=== PATIENT | female | born 1975 | race Caucasian/White ===

== ENCOUNTER → 2025-01-13 | Outpatient (CLI) | payer BC, SELFPAY ==
[2025-01-13 15:05] LABS: Follicle Stimulating Hormone 46.9 mIU/mL
[2025-01-15 21:07] LABS: Anti-Mullerian Hormone,Serum < 0.015 ng/mL (.)
[2025-01-19 13:08] LABS: HPV APTIMA, High Risk Negative (Negative)
== END | disposition home or self-care (01) ==
PROVIDERS: PCP Family Medicine; Referring Provider Nurse Practitioner Family; Visit Provider Nurse Practitioner Family
DX: Z12.4 Encounter for screening for malignant neoplasm of cervix (principal); R53.83 Other fatigue
CPT/HCPCS: 36415; 82670; 83001; 83516; 87624; 88175; G0145

== ENCOUNTER → 2025-02-02 | Outpatient (CLI) | payer BC, SELFPAY ==
--- NOTE | 2025-02-02 16:56 | BI_ITS ---
EXAM: SCRN MAMM (CAD)W/CHAZ BILAT DATE: 02/02/2025 CLINICAL HISTORY: F, Age 49 y/o , SCREENING No family history. TECHNIQUE: Procedure Code: [id number] Modality: MG Procedure: SCRN MAMM (CAD)W/CHAZ BILAT COMPARISON: No prior study available for comparison. FINDINGS: TISSUE DENSITY: There are scattered areas of fibroglandular density. Bilateral Breast Mammographic Findings: No significant masses, calcifications or other abnormalities are identified. Small benign-appearing bilateral axillary lymph nodes. No suspicious masses, areas of developing architectural distortion, or suspicious calcifications. BI/SCRN MAMM (CAD)W/CHAZ BILAT IMPRESSION: Unremarkable bilateral screening mammogram. OVERALL FINAL ASSESSMENT BI-RADS 2: BENIGN RECOMMENDATION: Routine annual follow-up in 1 Year A letter with findings and recommendations will be mailed to the patient. Reading Location: [place] [id number]
--- OUTSIDE RECORDS SUMMARY | 2025-02-03 07:34 | XMS RPT_ITS | CCD ---
Author Organization [facility] Care Team Providers Care Color Grinder Name Role Phone MADHU VALLES Primary Care Unavailable SINAN DOMINGO Attending UnavailMADHU York Primary Care Unavailable Dr. Madhu Valles MD Primary Care Provider Dr. Madhu Valles MD Referring Provider Marjorie ADVANCED DEVELOPER-CJolynn Attending Provider Marjorie ADVANCED DEVELOPER-CJolynn Referring Provider Jolynn Amador Attending Unavailable Madhu Valles Primary Care Unavailable Madhu Valles Referring Unavailable Jolynn Amador Attending Unavailable Jolynn Amador Referring Unavailable Madhu Valles Primary Care Unavailable Jolynn Amador Referring Unavailable Madhu Valles Primary Care Unavailable Jolynn Amador Attending Unavailable Allergies Allergy Classification Reported Allergen(s) Allergy Type Date of Onset Reaction(s) Facility (1 source) Seasonal allergy; Translations: [SEASONAL ALLERGIES] Propensity to adverse reactions (disorder) 1 [facility] Other [facility] (3 sources) Adhesive Tape; Translations: [adhesive tape] Allergy to substance 5 [facility] Medications Current Medications Medication Drug Class(es) Dates Sig (Normalized) Sig (Original) cetirizine hydrochloride 10 mg oral capsule (2 sources) Histamine-1 Receptor Antagonist Start: 03-28-2021 take 1 capsule by mouth once daily as needed Cetirizine (Zyrtec) 10 mg capsule Active 10 mg PO DAILY as needed March 28, 2021 1:00am cholecalciferol 0.05 mg oral capsule (2 sources) Vitamin D Start: 12-22-2024 take 1 capsule by mouth once daily Cholecalciferol (Vitamin D3) 50 mcg (2,000 unit) capsule Active 50 ug PO daily December 22, 2024 12:00am levothyroxine sodium 0.075 mg oral capsule (4 sources) l-Thyroxine Start: 12-22-2024 take 1 capsule by mouth once daily Levothyroxine 75 mcg capsule Active 75 ug PO daily December 22, 2024 12:00am Start: 03-28-2021 End: 12-22-2024 Levothyroxine 50 mcg tablet Discontinued NMA PO March 28, 2021 1:00am December 22, 2024 9:46am Completed/Discontinued Medications Medication Drug Class(es) Dates Sig (Normalized) Sig (Original) ergocalciferol 1.25 mg oral capsule (2 sources) Provitamin D2 Compound Start: 03-28-2021 End: 12-22-2024 Ergocalciferol (Vitamin D2) 1,250 mcg (50,000 unit) capsule Discontinued NMA PO March 28, 2021 1:00am December 22, 2024 9:45am Problems Active Problems Problem Classification Problem Date Documented Da te Episodic/Chronic Malaise and fatigue (1 source) Other fatigue; Translations: [Other fatigue] Onset: 01-13-2025 Episodic Menopausal disorders (5 sources) Menopausal syndrome; Translations: [Menopausal and female climacteric states] Onset: 01-13-2025 01-13-2025 Chronic Other bone disease and musculoskeletal deformities (4 sources) Segmental and somatic dysfunction; Translations: [Segmental and somatic dysfunction of lumbar region] 03-28-2021 Episodic Other lower respiratory disease (1 source) Shortness of breath; Translations: [SOB (shortness of breath)] Onset: 06-12-2023 Episodic Other nervous system disorders (1 source) Paresthesia of skin; Translations: [Paresthesias] Onset: 06-12-2023 Episodic Other screening for suspected conditions (not mental disorders or infectious disease) (3 sources) Encounter for screening mammogram for malignant neoplasm of breast; Translations: [Encounter for screening for malignant neoplasm of cervix] Onset: 01-13-2025 Episodic Spondylosis; intervertebral disc disorders; other back problems (6 sources) Lumbar radiculopathy; Translations: [Radiculopathy, lumbar region] 03-28-2021 Episodic Thyroid disorders (2 sources) Hypothyroidism; Translations: [Hypothyroidism, unspecified] 03-28-2021 Chronic Past or Other Problems Problem Classification Problem Date Documented Da te Episodic/Chronic Mycoses (1 source) Tinea unguium; Translations: [Dermatophytosis of nail] Onset: 12-17-2022 Episodic Results Test Name Value Interpretation Reference Range Facility PAP IG HPV APTIMA 16/18,45on 01-19-2025 ADEQ Comment Normal . [facility] Comment on above: Order Comment: Speci men Comment: [id number] Specimen Comment: No. of containers..01 ThinPrep Vial Result Comment: Sati sfactory for evaluation. Endocervical and/or squamous metaplastic cells (endocervical component) are present. Performed By: #### L 7400.0280 #### [facility] [address] [place], [place], [id number] COMM . Normal . [facility] Comment on above: Order Comment: Speci men Comment: [id number] Specimen Comment: No. of containers..01 ThinPrep Vial Performed By: #### L 7400.0280 #### [facility] [address] [place], [place], [id number] COMMENT TNP Normal . [facility] Comment on above: Order Comment: Speci men Comment: [id number] Specimen Comment: No. of containers..01 ThinPrep Vial Result Comment: The Thin Prep(R) Vp Packaging was unable to read this specimen. Therefore a manual review was performed. Performed By: #### L 7400.0280 #### [facility] [address] [place], [address] DIAG Comment Normal . [facility] Comment on above: Order Comment: Speci men Comment: [id number] Specimen Comment: No. of containers..01 ThinPrep Vial Result Comment: NEGA TIVE FOR INTRAEPITHELIAL LESION OR MALIGNANCY. Performed By: #### L 7400.0280 #### [facility] [address] [place], [place], [id number] HPV APTIMA, HR Negative Normal Negative [facility] Comment on above: Order Comment: Speci men Comment: [id number] Specimen Comment: No. of containers..01 ThinPrep Vial Result Comment: This nucleic acid amplification test detects fourteen high- risk HPV types (16,18,31,33,35,39,45,51,52,56,58,59,66,68) without differentiation. Performed By: #### L 7400.0280 #### [facility] [address] [place], [address] HPV Eliane Rfx Comment Normal . [facility] Comment on above: Order Comment: Speci men Comment: [id number] Specimen Comment: No. of containers..01 ThinPrep Vial Result Comment: Crit diego not met, HPV Genotype not performed. Performed at: - [address] [id number] Foreign Law Consultant: Jane Mitchell MD, Phone: [phone] Performed at: =G - [facility] [address] [id number] Foreign Law Consultant: Jane Mitchell MD, Phone: [phone] Performed By: #### L 7400.0280 #### [facility] [address] [place], [address] PAPSMR Comment Normal . [facility] Comment on above: Order Comment: Speci men Comment: [id number] Specimen Comment: No. of containers..01 ThinPrep Vial Result Comment: The Pap smear is a screening test designed to aid in the detection of premalignant and malignant conditions of the uterine cervix. It is not a diagnostic procedure and should not be used as the sole means of detecting cervical cancer. Both false-positive and false-negative reports do occur. Performed By: #### L 7400.0280 #### [facility] [address] [place], [address] PERFORM Comment Normal . [facility] Comment on above: Order Comment: Speci men Comment: [id number] Specimen Comment: No. of containers..01 ThinPrep Vial Result Comment: Allison Van, Cabin Equipment Supervisor (ASCP) Performed By: #### L 7400.0280 #### [facility] [address] [place], [place], [address] Antimullerian Hormone, Serum on 01-15-2025 AMH, SERUM < 0.015 Normal . [facility] Comment on above: Result Comment: For assays employing antibodies, the possibility exists for interference by heterophile antibodies in the samples.1 1.Homero Grider Interferences in Immunoassays - still a threat. Clin. Chem. 2000; 46: 2743-1310. This test was developed and its performance characteristics determined by [facility]. It has not been cleared or approved by the Food and Drug Administration. Reference Range: Females 47 - 54y: <= 0.82 Median <0.03 AMH concentrations of >= 1.06 ng/mL is correlated with a better response to ovarian stimulation, produced more retrievable oocytes and higher odds of live according to Martitaer et al. Fertility and Sterility. 2010: 94:2461-8071. The current AMH test method correlates with the study method with a slope of 0.94. Females at risk of ovarian hyperstimulation syndrome or polycystic ovarian syndrome (PCOS) may exhibit elevated serum AMH concentrations. AMH levels from PCOS patients may be 2 to 5 fold higher than age-appropriate reference interval values. Granulosa cell tumors of the ovary may secrete AMH along with other tumor markers. Elevated AMH is not specific for malignancy, and the assay should not be used exclusively to diagnose or exclude an AMH-secreting ovarian tumor. Performed at: [facility] [address] [place] [id number] Foreign Law Consultant: Randall Alexander MD, Phone: [phone] Performed By: #### L 9569.2990, L3199.9331, M643.0340 #### [facility] [address] [place], [place], [id number] Cervical or vaginal specimen microscopic examination by liquid based cytology (reportOrdered By: Jolynn Amador on 01-13-2025 Cytology report Cyto stain.thin prep Doc (Cvx/Vag) Comment . [facility] Comment on above: Criteria not met, HP V Genotype not performed.Performed at: - [facility] [id number] [place], [place] [id number] Director: Jane Mitchell MD, Phone: [phone] at: =G - [facility] [id number] [place], [place] [id number] Director: Jane Mitchell MD, Phone: [phone] Cervical or vagninal specime n microscopic examination by cytology stain (reported asOrdered By: Jolynn Amador on 01-13-2025 Cytology report Cyto stain Doc (Cvx/Vag) Comment . [facility] Comment on above: The Pap smear is a s creening test designed to aid in thedetection of premalignant and malignant conditions of theuterine cervix. It is not a diagnostic procedure andshould not be used as the sole means of detecting cervicalcancer. Both false-positive and false-negative reports dooccur. Detection in cervical specim en of any of human papilloma virus (HPV) 16, 18, 31, 33,Ordered By: Jolynn Amador on 01-13-2025 HPV 16+18+31+33+35+39+45 +51+52+56+58+59+66+6 8 DNA Probe+sig amp Ql (Cvx) Negative Negative [facility] Comment on above: This nucleic acid am plification test detects fourteen high- risk HPV types (16,18,31,33,35,39,45,51,52,56,58,59,66,68)without differentiation. Estradiolon 01-13-2025 ESTRADIOL 17.8 pg/mL Normal [facility] Comment on above: Result Comment: FEMA LES ADULT FEMALE: Premenopausal: 15-350 pg/mL(E2 levels vary widely through the menstrual cycle) Postmenopausal: <10 pg/mL BENOIT STAGES MEAN AGE REFERENCE RANGES Stage I(>14 days and prepubertal) 7.1 years Undetectable-20 pg/mLL Stage II 10.5 years Undetectable-24 pg/mL Stage III 11.6 years Undetectable-60 pg/mL Stage IV 12.3 years 15-85 pg/mL Stage V 14.5 years 15-350 pg/mL Puberty onset (transition from Benoit stage I to Benoit stage II) occurs for girls at a median age of 10.5 (/- 2) years. There is evidence that it may occur up to 1 year earlier in obese girls and in girls. Progression through Benoit stages is variable. Benoit stage V (adult) should be reached by age 18. Performed By: #### L 3300.1750, L3100.5125, L803.3000 #### [facility] [address] [place], [place], [address] Follicle Stimulating Hormone on 01-13-2025 FSH 46.9 mIU/mL Normal [facility] Comment on above: Result Comment: FEMA LE: Follicular: 1.4 - 18.1 mIU/mL Midcycle: 3.4 - 33.4 mIU/mL Luteal: 1.5 - 9.1 mIU/mL Post Menopause: 23.0 - 116.3 mIU/mL MALE: 1.4 - 18.1 mIU/mL Performed By: #### L 3300.1750, L3100.5125, L803.3000 #### [facility] [address] [place], [place], [address] Laboratory - CytologyOrdered By: Jolynn Amador on 01-13-2025 Cabin Equipment Supervisor Cyto stain Nom (Cvx/Vag) [ID] Comment . [facility] Comment on above: Allison Van, Cytolo gist (ASCP) Laboratory - Miscellaneous t estsOrdered By: Jolynn Amador on 01-13-2025 Service comment (Unsp spec) [Interp] . . [facility] No Panel InformationOrdered By: Jolynn Amador on 01-13-2025 Pap Smear Specimen Adequacy Comment . [facility] Comment on above: Satisfactory for rolando luation. Endocervical and/or squamous metaplasticcells (endocervical component) are present. 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 Is patient in pain?: No Allergies adhesive tape Allergy (Mild, Verified 01/13/25 09:29) Hives Medications ???Medication ???Instructions ???Recorded ???Confirmed ???Type cetirizine 10 mg capsule (Zyrtec) 10 mg PO DAILY PRN 03/28/2101/13 History cholecalciferol (vitamin D3) 50 50 mcg PO QDAY 12/22/24 01/13/25 H istory mcg (2,000 unit) capsule levothyroxine 75 mcg capsule 75 mcg PO QDAY 12/22/24 01/13/25 H istory Is last menstrual period known: Yes Last Menstrual Period: 12/18/20 Post menopausal: Yes Patient : No : No Control Method: menopause PFSH Medical History History of UTI History of gout Hypothyroidism History of gastroesophageal reflux (GERD) History of irritable bowel syndrome History of frequent headaches Surgical History History of cholecystectomy Family History Father Colon cancer, Onset Age: 51 Grandfather Cancer Bladder Myocardial infarction, Onset Age: 60 Mother Kidney disease Thyroid disorder Brother Thyroid disorder Grandmother Arthritis Thyroid disorder Social History adopted: No household members: spouse and children number of children: 3 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 Date Name GA/Weeks Outcome Route Bth Weight Infant Gen Labor Lgth Anesthesia Del Locatn Provider FOB 03/08/98 Champ live - full term 7lbs 12oz Male epidural [facility] 11/13/00 Olivier live - full term 8lbs 9oz Male epidural [facility] 07/27/03 Radha live - full term 8lbs 6oz Female epidural [facility] Delivery Date: 07/27/03 Last Updated by: Siomara Davis UTI turned into blood infection HPI Encounter for routine gynecological examination Details: MILAGRO BOLAÑOS is a 49 year old who presents for annual exam. She is here to establish care; she reports no issues or concerns today. Her last menses was December of 2020; no reports of vaginal bleeding. Has had weight change, hotflashes, mood changes, dry skin since what sounds like going through menopause She is sexually active- using condoms. Last PAP: unsure; over 6 years. History of abnormal PAP: none Last mammogram: once prior; normal per patient; greater than 6 yrs. History of abnormal mammogram: none Colon cancer screening: Dr. Posey; [place]--will schedule through; does not need referral. Other preventative health care screenings: Ralph Valles. Female Reproductive History Last Menstrual Period: 12/18/20 Questions: metrorrhagia: No, sexually active: Yes (condoms), dyspareunia: No and PCB: No Menopausal Symptoms: Yes hot flashes, Yes night sweats, Yes weight change, Yes mood changes, Yes difficulty concentrating, Yes sleep problems and Yes change in libido Menopausal Treatment: No HRT, No Vaginal Estrogen, No Osphena, No OTC treatments and No prescription non-hormonal treatment ROS Const Constitutional: Reports night sweats; Denies chills, fatigue, fever(s), headache(s) or weight loss Eyes Eyes: Denies change in vision ENT ENT: Denies dizziness Cardio Card: Denies chest pain at rest or palpitations Resp Resp: Denies cough or dyspnea GI GI: Denies abdominal pain, constipation or nausea : Reports hot flashes; Denies difficulty voiding, dysuria, hematuria, nipple discharge, pelvic pain, prolapse symptoms, urinary incontinence, vaginal discharge, vaginal dryness, vaginal odor or vaginal pruritus Skin Skin (more content not included)... Normal [facility] Serum or plasma estradiol me asurement after follitropin dose (mass/volume)Ordered By: Jolynn Amador on 01-13-2025 E2 post dose follitropin [Mass/Vol] 17.8 pg/mL [facility] Comment on above: FEMALES ADULT FEMALE : Premenopausal: 15-350 pg/mL(E2 levels vary widely through the menstrual cycle) Postmenopausal: <10 pg/mL BENOIT STAGES MEAN AGE REFERENCE RANGES Stage I(>14 days and prepubertal) 7.1 years Undetectable-20 pg/mLL Stage II 10.5 years Undetectable-24 pg/mL Stage III 11.6 years Undetectable-60 pg/mL Stage IV 12.3 years 15-85 pg/mL Stage V 14.5 years 15-350 pg/mL Puberty onset (transition from Benoit stage I to Benoit stage II) occurs for girls at a median age of 10.5 (/- 2) years. There is evidence that it may occur up to 1 year earlier in obese girls and in girls.Progression through Benoit stages is variable. Benoit stage V (adult) should be reached by age 18. Serum or plasma flecainide m easurement (mass/volume)Ordered By: Jolynn Amador on 01-13-2025 Flecainide [Mass/Vol] < 0.015 ng/mL . [facility] Comment on above: For assays employing antibodies, the possibility exists forinterference by heterophile antibodies in the samples.11.Homero Grider Interferences in Immunoassays - still a threat. Clin. Chem. 2000; 46: 6337-5510.This test was developed and its performance characteristicsdetermined by [facility]. It has not been cleared or approvedby the Food and Drug Administration.Reference Range:Females 47 - 54y: <= 0.82Median <0.03AMH concentrations of >= 1.06 ng/mL is correlated with abetter response to ovarian stimulation, produced moreretrievable oocytes and higher odds of live accordingto Gleicher et al. Fertility and Sterility. 2010:94:4254-2014. The current AMH test method correlates withthe study method with a slope of 0.94.Females at risk of ovarian hyperstimulation syndrome orpolycystic ovarian syndrome (PCOS) may exhibit elevatedserum AMH concentrations. AMH levels from PCOS patientsmay be 2 to 5 fold higher than age-appropriate referenceinterval values.Granulosa cell tumors of the ovary may secrete AMH alongwith other tumor markers. Elevated AMH is not specific formalignancy, and the assay should not be used exclusively todiagnose or exclude an AMH-secreting ovarian tumor.Performed at: [facility] [address] [place] [id number] Director: Randall Alexander MD, Phone: [phone] CBC (INCLUDES DIFF/PLT)on Basophils (Bld) [#/Vol] 0.04 10*3/uL Normal 0-200 [facility] Comment on above: Performed By: #### 1 7306, 6399, 7600, 905, 44628 #### [facility] [address], [address] [place] [address] Chiller Operator: Babar Gomez MD Basophils/100 WBC (Bld) 0.8 % Normal [facility] Comment on above: Performed By: #### 1 7306, 6399, 7600, 905, 78707 #### [facility] [place] [address] Chiller Operator: Babar Gomez MD Eosinophils (Bld) [#/Vol] 0.09 10*3/uL Normal 15-500 [facility] Comment on above: Performed By: #### 1 7306, 6399, 7600, 905, 14192 #### [facility] [place] [address] Chiller Operator: Babar Gomez MD Eosinophils/100 WBC (Bld) 1.8 % Normal [facility] Comment on above: Performed By: #### 1 7306, 6399, 7600, 905, 26889 #### [facility] [address], [address] [place] [address] Chiller Operator: Babar Gomez MD Erythrocyte distribution width (RBC) [Ratio] 13.8 % Normal 11.0-15.0 [facility] Comment on above: Performed By: #### 1 7306, 6399, 7600, 905, 02798 #### [facility] of [place] [address] Chiller Operator: Babar Gomez MD Hematocrit (Bld) [Volume fraction] 44.9 % Normal 35.0-45.0 [facility] Comment on above: Performed By: #### 1 7306, 6399, 7600, 905, 16413 #### [facility] of [place] [address] Chiller Operator: Babar Gomez MD Hemoglobin (Bld) [Mass/Vol] 14.4 g/dL Normal 11.7-15.5 [facility] Comment on above: Performed By: #### 1 7306, 6399, 7600, 905, 38908 #### [facility] of [place] [address] Chiller Operator: Babar Gomez MD Lymphocytes (Bld) [#/Vol] 1.585 10*3/uL Normal 850-3900 [facility] Comment on above: Performed By: #### 1 7306, 6399, 7600, 905, 92546 #### [facility] of [place] [address] Chiller Operator: Babar Gomez MD Lymphocytes/100 WBC (Bld) 31.7 % Normal [facility] Comment on above: Performed By: #### 1 7306, 6399, 7600, 905, 71612 #### [facility] of [place] [address] Chiller Operator: Babar Gomez MD MCH (RBC) [Entitic mass] 29.8 pg Normal 27.0-33.0 [facility] Comment on above: Performed By: #### 1 7306, 6399, 7600, 905, 53794 #### [facility] [place] [address] Chiller Operator: Babar Gomez MD MCHC (RBC) [Mass/Vol] 32.1 g/dL Normal 32.0-36.0 [facility] Comment on above: Result Comment: For adults, a slight decrease in the calculated MCHC value (in the range of 30 to 32 g/dL) is most likely not clinically significant; however, it should be interpreted with caution in correlation with other red cell parameters and the patient's clinical condition. Performed By: #### 1 7306, 6399, 7600, 905, 60173 #### [facility] [place] [address] Chiller Operator: Babar Gomez MD MCV (RBC) [Entitic vol] 92.8 fL Normal 80.0-100.0 [facility] Comment on above: Performed By: #### 1 7306, 6399, 7600, 905, 85198 #### [facility] [place] [address] Chiller Operator: Babar Gomez MD Monocytes (Bld) [#/Vol] 0.44 10*3/uL Normal 200-950 [facility] Comment on above: Performed By: #### 1 7306, 6399, 7600, 905, 60066 #### [facility] [place] [address] Chiller Operator: Babar Gomez MD Monocytes/100 WBC (Bld) 8.8 % Normal [facility] Comment on above: Performed By: #### 1 7306, 6399, 7600, 905, 01149 #### [facility] [place] [address] Chiller Operator: Babar Gomez MD Neutrophils (Bld) [#/Vol] 2.845 10*3/uL Normal 8039-6496 [facility] Comment on above: Performed By: #### 1 7306, 6399, 7600, 905, 59154 #### [facility] [place] [address] Chiller Operator: Babar Gomez MD Neutrophils/100 WBC (Bld) 56.9 % Normal [facility] Comment on above: Performed By: #### 1 7306, 6399, 7600, 905, 66429 #### [facility] of [address], [address] [place] [address] Chiller Operator: Babar Gomez MD Platelet mean volume (Bld) [Entitic vol] 10.2 fL Normal 7.5-12.5 [facility] Comment on above: Performed By: #### 1 7306, 6399, 7600, 905, 68316 #### [facility] [place] [address] Chiller Operator: Babar Gomez MD Platelets (Bld) [#/Vol] 247 10*3/uL Normal 140-400 [facility] Comment on above: Performed By: #### 1 7306, 6399, 7600, 905, 31032 #### [facility] of [place] [address] Chiller Operator: Babar Gomez MD RBC (Bld) [#/Vol] 4.84 10*6/uL Normal 3.80-5.10 [facility] Comment on above: Performed By: #### 1 7306, 6399, 7600, 905, 13372 #### [facility] [place] [address] Chiller Operator: Babar Gomez MD WBC (Bld) [#/Vol] 5.0 10*3/uL Normal 3.8-10.8 [facility] Comment on above: Performed By: #### 1 7306, 6399, 7600, 905, 09406 #### [facility] [place] [address] Chiller Operator: Babar Gomez MD COMPREHENSIVE METABOLIC PANE [facility] 10-16-2024 Albumin [Mass/Vol] 4.6 g/dL Normal 3.6-5.1 [facility] Comment on above: Performed By: #### 1 7306, 6399, 7600, 905, 15207 #### [facility] [place] [address] Chiller Operator: Babar Gomez MD Albumin/Globulin [Mass ratio] 1.6 {ratio} Normal 1.0-2.5 [facility] Comment on above: Performed By: #### 1 7306, 6399, 7600, 905, 16997 #### [facility] [place] [address] Chiller Operator: Babar Gomez MD ALP [Catalytic activity/Vol] 81 U/L Normal 37-153 [facility] Comment on above: Performed By: #### 1 7306, 6399, 7600, 905, 21085 #### [facility] [place] [address] Chiller Operator: Babar Gomez MD ALT [Catalytic activity/Vol] 25 U/L Normal 6-29 [facility] Comment on above: Performed By: #### 1 7306, 6399, 7600, 905, 01666 #### [facility] [place] [address] Chiller Operator: Babar Gomez MD AST [Catalytic activity/Vol] 19 U/L Normal 10-35 [facility] Comment on above: Performed By: #### 1 7306, 6399, 7600, 905, 39023 #### [facility] [place] [address] Chiller Operator: Babar Gomez MD Bilirubin [Mass/Vol] 0.4 mg/dL Normal 0.2-1.2 [facility] Comment on above: Performed By: #### 1 7306, 6399, 7600, 905, 27443 #### [facility] [place] [address] Chiller Operator: Babar Gomez MD Calcium [Mass/Vol] 9.9 mg/dL Normal 8.6-10.4 [facility] Comment on above: Performed By: #### 1 7306, 6399, 7600, 905, 79935 #### [facility] [place] [address] Chiller Operator: Babar Gomez MD Chloride [Moles/Vol] 105 mmol/L Normal 98-110 [facility] Comment on above: Performed By: #### 1 7306, 6399, 7600, 905, 20587 #### [facility] [place] [address] Chiller Operator: Babar Gomez MD CO2 [Moles/Vol] 26 mmol/L Normal 20-32 [facility] Comment on above: Performed By: #### 1 7306, 6399, 7600, 905, 80064 #### [facility] [place] [address] Chiller Operator: Babar Gomez MD Creatinine [Mass/Vol] 1.08 mg/dL High 0.50-1.03 [facility] Comment on above: Performed By: #### 1 7306, 6399, 7600, 905, 24502 #### [facility] [place] [address] Chiller Operator: Babar Gomez MD GFR/1.73 sq M.predicted among non-blacks MDRD (S/P/Bld) [Vol rate/Area] 63 mL/min/{1.73_m2} Normal > OR = 60 [facility] Comment on above: Performed By: #### 1 7306, 6399, 7600, 905, 87082 #### [facility] [place] [address] Chiller Operator: Babar Gomez MD Globulin (S) [Mass/Vol] 2.8 g/dL Normal 1.9-3.7 [facility] Comment on above: Performed By: #### 1 7306, 6399, 7600, 905, 95086 #### [facility] of [address] [address] Chiller Operator: Babar Gomez MD Glucose [Mass/Vol] 100 mg/dL High 65-99 [facility] Comment on above: Result Comment: Fasting reference interval For someone without known diabetes, a glucose value between 100 and 125 mg/dL is consistent with prediabetes and should be confirmed with a follow-up test. Performed By: #### 1 7306, 6399, 7600, 905, 04788 #### [facility] [place] [address] Chiller Operator: Babar Gomez MD Potassium [Moles/Vol] 4.9 mmol/L Normal 3.5-5.3 [facility] Comment on above: Performed By: #### 1 7306, 6399, 7600, 905, 44197 #### [facility] [place] [address] Chiller Operator: Babar Gomez MD Protein [Mass/Vol] 7.4 g/dL Normal 6.1-8.1 [facility] Comment on above: Performed By: #### 1 7306, 6399, 7600, 905, 88981 #### [facility] [place] [address] Chiller Operator: Babar Gomez MD Sodium [Moles/Vol] 141 mmol/L Normal 135-146 [facility] Comment on above: Performed By: #### 1 7306, 6399, 7600, 905, 33532 #### [facility] [place] [address] Chiller Operator: Babar Gomez MD Urea nitrogen [Mass/Vol] 14 mg/dL Normal 7-25 [facility] Comment on above: Performed By: #### 1 7306, 6399, 7600, 905, 60191 #### [facility] [place] [address] Chiller Operator: Babar Gomez MD Urea nitrogen/Creatinine [Mass ratio] 13 mg/mg Normal 6-22 [facility] Comment on above: Performed By: #### 1 7306, 6399, 7600, 905, 54482 #### [facility] [address], [address] [place] [address] Chiller Operator: Babar Gomez MD LIPID PANEL, [place] [address] Cholesterol [Mass/Vol] 229 mg/dL High <200 [facility] Comment on above: Order Comment: FASTI NG:YES FASTING: YES Performed By: #### 1 7306, 6399, 7600, 905, 55443 #### [facility] [address], [address] [place] [address] Chiller Operator: Babar Gomez MD Cholesterol in HDL [Mass/Vol] 42 mg/dL Low > OR = 50 [facility] Comment on above: Order Comment: FASTI NG:YES FASTING: YES Performed By: #### 1 7306, 6399, 7600, 905, 46521 #### [facility] [address], [address] [place] [address] Chiller Operator: Babar oGmez MD Cholesterol in LDL [Mass/Vol] 133 mg/dL High [facility] Comment on above: Order Comment: FASTI NG:YES FASTING: YES Result Comment: Refe rence range: <100 Desirable range <100 mg/dL for primary prevention; <70 mg/dL for patients with CHD or diabetic patients with > or = 2 CHD risk factors. LDL-C is now calculated using the Joseph-Doni calculation, which is a validated novel method providing better accuracy than the Friedewald equation in the estimation of LDL-C. Joseph CROUCH et al. CRISTIN. 2013;310(19): 6355-0832 (http://education.[employer].Gummii/faq/UYK077) Performed By: #### 1 7306, 6399, 7600, 905, 55991 #### [facility] [address], [address] [place] [address] Chiller Operator: Babar Gomez MD Cholesterol.total/Ch olesterol in HDL [Mass ratio] 5.5 {ratio} High <5.0 [facility] Comment on above: Order Comment: FASTI NG:YES FASTING: YES Performed By: #### 1 7306, 6399, 7600, 905, 84603 #### [facility] [address], [address] [place] [address] Chiller Operator: Babar Gomez MD NON HDL CHOLESTEROL 187 mg/dL (calc) High <130 [facility] Comment on above: Order Comment: FASTI NG:YES FASTING: YES Result Comment: For patients with diabetes plus 1 major ASCVD risk factor, treating to a non-HDL-C goal of <100 mg/dL (LDL-C of <70 mg/dL) is considered a therapeutic option. Performed By: #### 1 7306, 6399, 7600, 905, 62039 #### [facility] [place] [address] Chiller Operator: Babar Gomez MD Triglyceride [Mass/Vol] 378 mg/dL High <150 [facility] Comment on above: Order Comment: FASTI NG:YES FASTING: YES Result Comment: If a non-fasting specimen was collected, consider repeat triglyceride testing on a fasting specimen if clinically indicated. Rogelio et al. J. of Clin. Lipidol. 2015;9:129-169. Performed By: #### 1 7306, 6399, 7600, 905, 12333 #### [facility] [place] [address] Chiller Operator: Babar Gomez MD TSHon 10-16-2024 TSH Qn 2.55 m[IU]/L Normal [facility] Comment on above: Result Comment: Refe rence Range > or = 20 Years 0.40-4.50 Ranges First trimester 0.26-2.66 Second trimester 0.55-2.73 Third trimester 0.43-2.91 Performed By: #### 1 7306, 6399, 7600, 905, 71699 #### [facility] [place] [address] Chiller Operator: Babar Gomez MD URIC ACIDon 10-16-2024 Urate [Mass/Vol] 7.0 mg/dL Normal 2.5-7.0 [facility] Comment on above: Result Comment: Ther apeutic target for gout patients: <6.0 mg/dL Performed By: #### 1 7306, 6399, 7600, 905, 04054 #### [place] [address] Chiller Operator: Babar Gomez MD VITAMIN D,25-OH,TOTAL,IAon 0 10-16-2024 VITAMIN D,25-OH,TOTAL,IA 43 ng/mL Normal 30-100 [facility] Comment on above: Result Comment: [place] min D Status 25-OH Vitamin D: Deficiency: <20 ng/mL Insufficiency: 20 - 29 ng/mL Optimal: > or = 30 ng/mL For 25-OH Vitamin D testing on patients on D2-supplementation and patients for whom quantitation of D2 and D3 fractions is required, the QuestAssureD(TM) 25-OH VIT D, (D2,D3), LC/MS/MS is recommended: order code 50920 (patients >2yrs). See Note 1 Note 1 For additional information, please refer to http://education.Outernet/faq/CLF356 (This link is being provided for informational/ educational purposes only.) Performed By: #### 1 7306, 6399, 7600, 905, 27258 #### [place] [address] Chiller Operator: Babar Gomez MD CBC W Auto Differential pane l (Bld)on 06-12-2023 Basophils (Bld) [#/Vol] 0.03 10*3/uL Normal <0.11 [facility] Comment on above: Order Comment: Speci men Type: BLOOD SPECIMEN Ordering Facility: [facility] Address: [address] [place] [address] Performed By: #### 5 7021-8 #### [facility] CLIA [id number] [address] [place] [address] [place] Basophils/100 WBC (Bld) 0.5 % Normal [facility] Comment on above: Order Comment: Speci men Type: BLOOD SPECIMEN Ordering Facility: [facility] Address: [address] [place] [address] Performed By: #### 5 7021-8 #### [facility] CLIA [id number] [address] [place] Differential cell count method Nom (Bld) Auto Normal [facility] Comment on above: Order Comment: Speci men Type: BLOOD SPECIMEN Ordering Facility: [facility] Address: [address] [place] [address] Performed By: #### 5 7021-8 #### [facility] CLIA [id number] [address] [place] [address] [place] Eosinophils (Bld) [#/Vol] 0.03 10*3/uL Normal <0.46 [facility] Comment on above: Order Comment: Speci men Type: BLOOD SPECIMEN Ordering Facility: [facility] Address: [address] [place] [address] Performed By: #### 5 7021-8 #### [facility] CLIA [id number] [address] [place] Eosinophils/100 WBC (Bld) 0.5 % Normal [facility] Comment on above: Order Comment: Speci men Type: BLOOD SPECIMEN Ordering Facility: [facility] Address: [address] [place] [address] Performed By: #### 5 7021-8 #### [facility] CLIA [id number] [address] [place] Erythrocyte distribution width (RBC) [Ratio] 12.9 % Normal 11.5-15.0 [facility] Comment on above: Order Comment: Speci men Type: BLOOD SPECIMEN Ordering Facility: [facility] Address: [address] [place] [address] Performed By: #### 5 7021-8 #### [facility] CLIA [id number] [address] [place] Hematocrit (Bld) [Volume fraction] 43.2 % Normal 36.0-46.0 [facility] Comment on above: Order Comment: Speci men Type: BLOOD SPECIMEN Ordering Facility: [facility] Address: [address] [place] [address] Performed By: #### 5 7021-8 #### [facility] CLIA [id number] [address] [place] [address] [place] Hemoglobin (Bld) [Mass/Vol] 15.1 g/dL Normal 11.5-15.5 [facility] Comment on above: Order Comment: Speci men Type: BLOOD SPECIMEN Ordering Facility: [facility] Address: [address] [place] [address] Performed By: #### 5 7021-8 #### [facility] CLIA [id number] [address] [place] [address] [place] Immature granulocytes (Bld) [#/Vol] 0.03 10*3/uL Normal <0.10 [facility] Comment on above: Order Comment: Speci men Type: BLOOD SPECIMEN Ordering Facility: [facility] Address: [address] [place] [address] Performed By: #### 5 7021-8 #### [facility] CLIA [id number] [address] Immature granulocytes/100 WBC (Bld) 0.5 % Normal [facility] Comment on above: Order Comment: Speci men Type: BLOOD SPECIMEN Ordering Facility: [facility] Address: [address] [place] [address] Performed By: #### 5 7021-8 #### [facility] CLIA [id number] [address] [place] Lymphocytes (Bld) [#/Vol] 1.26 10*3/uL Normal 1.00-4.00 [facility] Comment on above: Order Comment: Speci men Type: BLOOD SPECIMEN Ordering Facility: [facility] Address: [address] [place] [address] Performed By: #### 5 7021-8 #### [facility] CLIA [id number] [address] Lymphocytes/100 WBC (Bld) 21.2 % Normal [facility] Comment on above: Order Comment: Speci men Type: BLOOD SPECIMEN Ordering Facility: [facility] Address: [address] [place] [address] Performed By: #### 5 7021-8 #### [facility] CLIA [id number] [address] MCH (RBC) [Entitic mass] 31.1 pg Normal 26.0-34.0 [facility] Comment on above: Order Comment: Speci men Type: BLOOD SPECIMEN Ordering Facility: [facility] Address: [address] [place] [address] Performed By: #### 5 7021-8 #### [facility] CLIA [id number] [address] [place] MCHC (RBC) [Mass/Vol] 35.0 g/dL Normal 30.5-36.0 [facility] Comment on above: Order Comment: Speci men Type: BLOOD SPECIMEN Ordering Facility: [facility] Address: [address] [place] [address] Performed By: #### 5 7021-8 #### [facility] CLIA [id number] [address] MCV (RBC) [Entitic vol] 88.9 fL Normal 80.0-100.0 [facility] Comment on above: Order Comment: Speci men Type: BLOOD SPECIMEN Ordering Facility: [facility] Address: [address] [place] [address] Performed By: #### 5 7021-8 #### [facility] CLIA [id number] [address] Monocytes (Bld) [#/Vol] 0.53 10*3/uL Normal <0.87 [facility] Comment on above: Order Comment: Speci men Type: BLOOD SPECIMEN Ordering Facility: [facility] Address: [address] [place] [address] Performed By: #### 5 7021-8 #### [facility] CLIA [id number] [address] Monocytes/100 WBC (Bld) 8.9 % Normal [facility] Comment on above: Order Comment: Speci men Type: BLOOD SPECIMEN Ordering Facility: [facility] Address: [address] [place] [address] Performed By: #### 5 7021-8 #### [facility] CLIA [id number] [address] [place] Neutrophils (Bld) [#/Vol] 4.06 10*3/uL Normal 1.45-7.50 [facility] Comment on above: Order Comment: Speci men Type: BLOOD SPECIMEN Ordering Facility: [facility] Address: [address] [place] [address] Performed By: #### 5 7021-8 #### [facility] CLIA [id number] [address] [place] Neutrophils/100 WBC (Bld) 68.4 % Normal [facility] Comment on above: Order Comment: Speci men Type: BLOOD SPECIMEN Ordering Facility: [facility] Address: [address] [place] [address] Performed By: #### 5 7021-8 #### [facility] CLIA [id number] [address] [place] Nucleated RBC (Bld) [#/Vol] 10*3/uL Normal <0.01 [facility] Comment on above: Order Comment: Speci men Type: BLOOD SPECIMEN Ordering Facility: [facility] Address: [address] [place] [address] Performed By: #### 5 7021-8 #### [facility] CLIA [id number] [address] Nucleated RBC/100 WBC (Bld) [Ratio] 0.0 /100 WBC Normal [facility] Comment on above: Order Comment: Speci men Type: BLOOD SPECIMEN Ordering Facility: [facility] Address: [address] [place] [address] Performed By: #### 5 7021-8 #### [facility] CLIA [id number] [address] Platelet mean volume (Bld) [Entitic vol] 9.6 fL Normal 9.0-12.7 [facility] Comment on above: Order Comment: Speci men Type: BLOOD SPECIMEN Ordering Facility: [facility] Address: [address] [place] [address] Performed By: #### 5 7021-8 #### [facility] CLIA [id number] [address] Platelets (Bld) [#/Vol] 196 10*3/uL Normal 150-400 [facility] Comment on above: Order Comment: Speci men Type: BLOOD SPECIMEN Ordering Facility: [facility] Address: [address] [place] [address] Performed By: #### 5 7021-8 #### [facility] CLIA [id number] [address] [place] RBC (Bld) [#/Vol] 4.86 10*6/uL Normal 3.90-5.20 [facility] Comment on above: Order Comment: Speci men Type: BLOOD SPECIMEN Ordering Facility: [facility] Address: [address] [place] [address] Performed By: #### 5 7021-8 #### [facility] CLIA [id number] [address] WBC (Bld) [#/Vol] 5.94 10*3/uL Normal 3.70-11.00 [facility] Comment on above: Order Comment: Speci men Type: BLOOD SPECIMEN Ordering Facility: [facility] Address: [address] [place] [address] Performed By: #### 5 7021-8 #### [facility] CLIA [id number] [address] Comprehensive metabolic 2000 panelon 06-12-2023 Albumin [Mass/Vol] 4.3 g/dL Normal 3.9-4.9 [facility] Comment on above: Order Comment: Speci men Type: BLOOD SPECIMEN Ordering Facility: [facility] Address: [address] [place] [address] Performed By: #### L [id number], 3016-3, 12399-9 #### [facility] CLIA [id number] [address] ALP [Catalytic activity/Vol] 79 U/L Normal 34-123 [facility] Comment on above: Order Comment: Speci men Type: BLOOD SPECIMEN Ordering Facility: [facility] Address: [address] [place] [address] Performed By: #### L [id number], 6-3, 91983-9 #### [facility] CLIA [id number] [address] ALT [Catalytic activity/Vol] 15 U/L Normal 7-38 [facility] Comment on above: Order Comment: Speci men Type: BLOOD SPECIMEN Ordering Facility: [facility] Address: [address] [place] [address] Performed By: #### L [id number], 6-3, 47183-2 #### [facility] CLIA [id number] [address] Anion gap [Moles/Vol] 11 mmol/L Normal 9-18 [facility] Comment on above: Order Comment: Speci men Type: BLOOD SPECIMEN Ordering Facility: [facility] Address: [address] [place] [address] Performed By: #### L [id number], 3015-3, 59067-8 #### [facility] CLIA [id number] [address] AST [Catalytic activity/Vol] 14 U/L Normal 13-35 [facility] Comment on above: Order Comment: Speci men Type: BLOOD SPECIMEN Ordering Facility: [facility] Address: [address] [place] [address] Performed By: #### L [id number], 3015-3, 48830-6 #### [facility] CLIA [id number] [address] [place] [facility] Bilirubin [Mass/Vol] 0.5 mg/dL Normal 0.2-1.3 [facility] Comment on above: Order Comment: Speci men Type: BLOOD SPECIMEN Ordering Facility: [facility] Address: [address] [place] [address] Performed By: #### L [id number], 6-3, 63498-8 #### [facility] CLIA [id number] [address] [facility] Calcium [Mass/Vol] 9.4 mg/dL Normal 8.5-10.2 [facility] Comment on above: Order Comment: Speci men Type: BLOOD SPECIMEN Ordering Facility: [facility] Address: [address] [place] [address] Performed By: #### L [id number], 3016-3, 43220-3 #### [facility] CLIA [id number] [address] [place] [address] [place] Chloride [Moles/Vol] 103 mmol/L Normal 97-105 [facility] Comment on above: Order Comment: Speci men Type: BLOOD SPECIMEN Ordering Facility: [facility] Address: [address] [place] [address] Performed By: #### L [id number], 6-3, 24388-4 #### [facility] CLIA [id number] [address] [place] CO2 [Moles/Vol] 27 mmol/L Normal 22-30 [facility] Comment on above: Order Comment: Speci men Type: BLOOD SPECIMEN Ordering Facility: [facility] Address: [address] [place] [address] Performed By: #### L [id number], 6-3, 06876-4 #### [facility] CLIA [id number] [address] [place] Creatinine [Mass/Vol] 1.02 mg/dL High 0.58-0.96 [facility] Comment on above: Order Comment: Speci men Type: BLOOD SPECIMEN Ordering Facility: [facility] Address: [address] [place] [address] Performed By: #### L [id number], 6-3, 69369-7 #### [facility] CLIA [id number] [address] [place] Creatinine and Glomerular filtration rate.predicted panel (S/P/Bld) 68 mL/min/1.73m??? Normal >=60 [facility] Comment on above: Order Comment: Speci men Type: BLOOD SPECIMEN Ordering Facility: [facility] Address: [address] [place] [address] Result Comment: Xiomy mated Glomerular Filtration Rate (eGFR) is calculated using the 2020 CKD-EPI creatinine equation. This equation utilizes serum creatinine, sex, and age as parameters. The creatinine assay has traceable calibration to isotope dilution-mass spectrometry. Refer to KDIGO guidelines for clinical interpretation. In patients with unstable renal function, e.g. those with acute kidney injury, the eGFR may not accurately reflect actual GFR. Performed By: #### L [id number], 3016-3, 38240-0 #### [facility] CLIA [id number] [address] [place] [address] [place] Glucose [Mass/Vol] 119 mg/dL High 74-99 [facility] Comment on above: Order Comment: Hernandez smith Type: BLOOD SPECIMEN Ordering Facility: [facility] Address: [address] [place] [address] Result Comment: The [place] [employer] (ADA) provides guidance for cutoff values for fasting glucose and random glucose. The ADA defines fasting as no caloric intake for at least 8 hours. Fasting plasma glucose results between 100 to 125 mg/dL indicate increased risk for diabetes (prediabetes). Fasting plasma glucose results greater than or equal to 126 mg/dL meet the criteria for diagnosis of diabetes. In the absence of unequivocal hyperglycemia, results should be confirmed by repeat testing. In a patient with classic symptoms of hyperglycemia or hyperglycemic crisis, random plasma glucose results greater than or equal to 200 mg/dL meet the criteria for diagnosis of diabetes. Reference: Standards of Medical Care in Diabetes 2016, [place] [employer]. Diabetes Care. 2016.39(Suppl 1). Performed By: #### L [id number], 3016-3, 21194-1 #### [facility] CLIA [id number] [address] [place] [address] [place] Potassium [Moles/Vol] 4.2 mmol/L Normal 3.7-5.1 [facility] Comment on above: Order Comment: Hernandez smith Type: BLOOD SPECIMEN Ordering Facility: [facility] Address: [address] [place] [address] Performed By: #### L [id number], 3016-3, 53023-6 #### [facility] CLIA [id number] [address] [place] [address] Protein [Mass/Vol] 7.1 g/dL Normal 6.3-8.0 [facility] Comment on above: Order Comment: Mercedesi men Type: BLOOD SPECIMEN Ordering Facility: [facility] Address: [address] [place] [address] Performed By: #### L [id number], 3016-3, 82745-9 #### [facility] CLIA [id number] [address] Sodium [Moles/Vol] 141 mmol/L Normal 136-144 [facility] Comment on above: Order Comment: Mercedesi men Type: BLOOD SPECIMEN Ordering Facility: [facility] Address: [address] [place] [address] Performed By: #### L [id number], 6-3, 11471-0 #### [facility] CLIA [id number] [address] Urea nitrogen [Mass/Vol] 12 mg/dL Normal 7-21 [facility] Comment on above: Order Comment: Speci men Type: BLOOD SPECIMEN Ordering Facility: [facility] Address: [address] [place] [address] Performed By: #### L [id number], 6-3, 78636-5 #### [facility] CLIA [id number] [address] D dimer FEU PPP-mCncon 06-12 Fibrin D-dimer FEU (PPP) [Mass/Vol] 210 ng/mL FEU Normal <500 [facility] Comment on above: Order Comment: Speci men Type: BLOOD SPECIMEN Ordering Facility: [facility] Address: [address] [place] [address] Performed By: #### 4 8065-7 #### [facility] CLIA [id number] [address] ECG COMPLETEon 06-12-2023 ECG COMPLETE Ventricular Rate : 7 1 BPM Atrial Rate : 71 BPM P-R Interval : 162 ms QRS Duration : 86 ms Q-T Interval : 416 ms QTC Calculation(Bazett) : 452 ms Calculated P Coventry : 49 degrees Calculated R Coventry : 41 degrees Calculated T Coventry : 35 degrees NORMAL SINUS RHYTHM NORMAL ECG no stemi Confirmed by Long DOMINGO ERIKA ([id number]), fan mail editor LAUREN CAMPOS ([id number]) on 06/12/2023 12:24:20 PM NAME : MILAGRO BOLAÑOS PID : [id number] : 1975 Gender : Female Race : ORD : [id number] Procedure Date : Jun 12 2023 08:07:13 Edit Date : Jun 12 2023 12:24:21 Diagnosis: NORMAL SINUS RHYTHM NORMAL ECG no stemi Confirmed by Long DOMINGO ERIKA ([id number]), fan mail editor LAUREN CAMPOS ([id number]) on 06/12/2023 12:24:20 PM Test Reason : Chest Pain Location : 1 : ER 09 Overread By : Long DOMINGO ERIKA Edited By : LAUREN CAMPOS Referred By : , Acquired by : VIKRAM, [facility] ED NOTEon 06-12-2023 ED NOTE HNO ID: [id number] Author: BULL LICEA RN Service: ? Author Type: Registered Nurse Type: ED Notes Filed: 06/12/2023 10:00 Note Text: Discharged pt. with diagnosis of SOB. Discharge and follow up instructions given. Pt. verbalized understanding of discharge instructions. Pt. has no further questions and/or concerns at this time. Heplock d/c'd. Pt. ambulates with steady gait. [facility] ED PROV NOTEon 06-12-2023 ED PROV NOTE HNO ID: [id number] Author: SINAN DOMINGO MD Service: ? Author Type: Physician Type: ED Provider Notes Filed: 06/12/2023 09:42 Note Text: ED Provider Note Patient Name: Milagro Bolaños : 1975 SERVICE DATE: 06/12/23 History Patient presents with: Shortness of Breath: Episode of sob and generalized numbness that woke her from sleep this morning. Pt reports she also had near syncopal episode. Patient with h/o thyroid disorder who presents with sudden onset of feeling sob and having overall arm/body numbness. She reports developing sore throat, laryngitis, and slight cough three days ago. She has been sleeping prone since this seems to help her cough. This morning, when getting up could not breath through her nose or mouth. She began feeling panicky and felt numbness in her arms, upper legs, and torso. The sob has resolved but she has still been having intermittent numbness. She denies chest pain, abdominal pain, fever/chills, n/v/d, flank pain, or headache. PAST MEDICAL HISTORY Diagnosis Date - Hypothyroid PAST SURGICAL HISTORY Procedure Laterality Date - CHOLECYSTECTOMY HX FAMILY HISTORY Problem Relation Age of Onset - Colon Cancer Father - Diabetes Paternal Grandmother - Cancer Maternal Grandfather Bladder - Kidney Disease Mother Social History Tobacco Use - Smoking status: Never - Smokeless tobacco: Never Substance and Sexual Activity - Alcohol use: No - Drug use: No - Sexual activity: Yes ALLERGIES Allergen Reactions - Seasonal Allergies Unknown Review of Systems Constitutional: Negative for chills and fever. HENT: Positive for sore throat and voice change. Negative for congestion, rhinorrhea, sinus pressure, sinus pain and sneezing. Eyes: Negative for visual disturbance. Respiratory: Positive for cough and shortness of breath. Cardiovascular: Negative for chest pain, palpitations and leg swelling. Gastrointestinal: Negative for abdominal pain, diarrhea, nausea and vomiting. Genitourinary: Negative for difficulty urinating, dysuria, flank pain and hematuria. Musculoskeletal: Negative for back pain, myalgias and neck stiffness. Skin: Negative for pallor. Neurological: Positive for light-headedness. Negative for dizziness, weakness and headaches. Psychiatric/Behavioral: Negative for confusion. All other systems reviewed and are negative. Physical Exam Vitals [06/12/23 0748] BP Pulse Temp Temp src Resp SpO2 Weight Height 157/95 70 36.3 ?C (97.4 ?F) Oral 16 100 % 99.3 kg (218 lb 14.7 oz) -- Physical Exam Vitals and nursing note reviewed. Constitutional: General: She is not in acute distress. Appearance: Normal appearance. She is well-developed. HENT: Head: Normocephalic and atraumatic. Right Ear: External ear normal. Left Ear: External ear normal. Nose: Nose normal. Mouth/Throat: Mouth: Mucous membranes are moist. Pharynx: Oropharynx is clear. Eyes: Conjunctiva/sclera: Conjunctivae normal. Pupils: Pupils are equal, round, and reactive to light. Cardiovascular: Rate and Rhythm: Normal rate and regular rhythm. Heart sounds: Normal heart sounds. No murmur heard. Pulmonary: Effort: Pulmonary effort is normal. No respiratory distress. Breath sounds: Normal breath sounds. No stridor. No wheezing, rhonchi or rales. Chest: Chest wall: No tenderness. Abdominal: General: Bowel sounds are normal. There is no distension. Palpations: Abdomen is soft. Tenderness: There is no abdominal tenderness. There is no rebound. Musculoskeletal: General: No tenderness. Normal range of motion. Cervical back: Normal range of motion and neck supple. Lymphadenopathy: Cervical: No cervical adenopathy. Skin: General: Skin is warm and dry. Capillary Refill: Capillary refill takes less than 2 seconds. Findings: No erythema or rash. Neurological: General: No focal deficit present. Mental Status: She is alert and oriented to person, place, and time. Cranial Nerves: No cranial nerve deficit. Psychiatric: Behavior: Behavior normal. Thought Content: Thought content normal. Judgment: Judgment normal. Diagnostic Testing ED Labs Ordered and Reviewed - No data to display Procedures ED Course / Clinical Impression Clinical Impressions as of 06/12/23 0942 SOB (shortness of breath) Paresthesias MDM / Disposition / Plan Nurses notes and old chart reviewed Patient here for feeling lightheaded, sob, and numbness. Has had URI past three days. Awoke this morning sob and then numbness to her arms, upper legs and torso. Ddx: hyperventilation syndrome, pneumonia, PE, orthostatic, arrhythmia, CHF, metabolic Work up in ED EKG shows nsr not st changes, sensitive trop < 6 x 2, covid/flu/rsv negative, Ddimer 210, TSH 1.610, CMP normal except Cr 1.02, normal CBC While in ED, she was watched on monitor which showed nsr no ectopy. Work up in ED is unremarkable. Suspect component of anxiety. (more content not included)... Normal [facility] FLUABV+SARS-CoV-2+RSV Pnl Re sp LUPE+probeon 06-12-2023 FLUABV+SARS-CoV-2+RS V Pnl Resp LUPE+probe COVID 19 RESULT: Not detected The method used is RT-PCR or an equivalent NAAT method. Reference Range(the expected result in uninfected individuals): Not detected INFLUENZA A PCR: Not detected INFLUENZA B PCR: Not detected RSV PCR: Not detected Normal [facility] Comment on above: Performed By: #### 9 5941-1 #### [facility] CLIA [id number] [address] OF [place] HIGH SENSITIVITY TROPONIN T (INITIAL)on 06-12-2023 Troponin T.cardiac High sensitivity method [Mass/Vol] <6 Normal <12 [facility] Comment on above: Order Comment: Hernandez smith Type: BLOOD SPECIMEN Ordering Facility: [facility] Address: [address] [place] [address] Result Comment: When assessing risk for acute coronary syndromes: In patients undergoing blood draw greater than or equal to 2 hours from symptom onset, with history of very low to moderate risk and non-ischemic ECG, an initial hs-Troponin T less than 12 ng/L AND a 1 hour delta hs-Troponin T less than 3 ng/L should be considered very low risk for 30 day MACE. Performed By: #### L [id number], 3016-3, 43910-9 #### [facility] CLIA [id number] [address] HIGH SENSITIVITY TROPONIN T (SECOND)on 06-12-2023 Troponin T.cardiac High sensitivity method [Mass/Vol] <6 Normal <[address] [place] [address] Comment on above: Order Comment: Hernandez smith Type: BLOOD SPECIMEN Ordering Facility: [facility] Address: [address] [place] [address] Result Comment: When assessing risk for acute coronary syndromes: In patients undergoing blood draw greater than or equal to 2 hours from symptom onset, with history of very low to moderate risk and non-ischemic ECG, an initial hs-Troponin T less than 12 ng/L AND a 1 hour delta hs-Troponin T less than 3 ng/L should be considered very low risk for 30 day MACE. Performed By: #### L [id number] #### [facility] CLIA [id number] [address] [place] TSH SerPl-aCncon 06-12-2023 TSH Qn 1.610 m[IU]/L Normal 0.270-4.200 [facility] Comment on above: Order Comment: Hernandez smith Type: BLOOD SPECIMEN Ordering Facility: [facility] Address: [address] [place] [address] Result Comment: If t he patient is , TSH reference range varies by gestational period: First Trimester (weeks 9-12): 0.180-2.990 mIU/L Second Trimester: 0.110-3.980 mIU/L Third Trimester: 0.480-4.710 mIU/L Amilcar Burton et al. A Practical Approach for the Verifications and Determination of Site- and Trimester-Specific Reference Intervals for Thyroid Function tests in . Thyroid, 2019:29:3:412-420. Eddi E, et al. 2017 Guidelines of the [place] Thyroid Association for the Diagnosis and Management of Thyroid Disease during and the . Thyroid, 2017:27:3:315-389. Performed By: #### L [id number], 3016-3, 88335-9 #### [facility] CLIA [id number] [address] [facility] ALT SerPl-cCncon 12-17-2022 ALT [Catalytic activity/Vol] 21 U/L Normal 7-38 [facility] Comment on above: Order Comment: Hernandez smith Type: BLOOD SPECIMEN Ordering Facility: [facility] Address: [address] [place] [address] Performed By: #### 1 742-6, 1919-12 #### [facility] CLIA [id number] [address] AST SerPl-cCncon 12-17-2022 AST [Catalytic activity/Vol] 19 U/L Normal 13-35 [facility] Comment on above: Order Comment: Hernandez smith Type: BLOOD SPECIMENOrdering Facility: [facility] Address: [address] [place] [address] Performed By: #### 1 742-6, 1919-12 ####[facility] [id number] [address] [place] CNOVon 05-05-2021 CNOV Office Visit ([place] ) MILAGRO BOLAÑOS ([id number]) 1975 F Date Time Provider Department 05/05/21 3:55 PM JAZ SOLANO During your visit today, we recorded the following information about you: Temperature Pulse Blood pressure Weight 97.5 degrees 96/minute 125/89 99.6 kg Last Period 12/18/20 Jaz Solano APRN.CNP 05/05/2021 6:22 PM Signed This note was created using Bizibleriter. Subjective Milagro Bolaños is a 45 year old female. HPI by patient: Milagro Bolaños is a 45 year female presenting to the office with the complaint of viral symptoms. Started approximately 3-4 days prior, 05/02. Associated symptoms include a little cough, sore throat, fever of 99.7F, fatigue, and occasional nausea- attributes to not eating much. Some ear pain that comes and goes. Denies chills, body aches, headache, shortness of breath, vomiting, diarrhea, sinus congestion, and loss of smell/taste that is new for her. Vaccinated for influenza: none. Covid Immunization Dates Overdue - COVID-19 VACCINE (1) Overdue - never done No completion, postpone, frequency change, or communication history exists for this topic. Personal history of Covid: yes, in January- just over 90 days. Flu/RSV contacts: none. Strep contacts: yes, son. Sick contacts: son and . Covid + contacts: none. Travel in the last 14 days: none. Smoking history/second hand smoke: none. OTC ibuprofen. No antibiotic use in the last 30 days. ALLERGIES No Known Allergies Family History Reviewed Including Cardiac Diseases, Psychiatric Diseases, AND Substance Abuse Problem: Colon Cancer Relation: Father Age of Onset: (Not Specified) Problem: Diabetes Relation: Paternal Grandmother Age of Onset: (Not Specified) Problem: Cancer Relation: Maternal Grandfather Age of Onset: (Not Specified) Comment: Bladder Problem: Kidney Disease Relation: Mother Age of Onset: (Not Specified) Social History Tobacco Use Smoking status: Never Smoker Smokeless tobacco: Never Used Alcohol use: No Drug use: No Active Ambulatory Problems Hypothyroid Date Noted: 09/05/2011 Resolved Ambulatory Problems No Resolved Ambulatory Problems Past Medical History:No Additional Past Medical History Review of Systems Constitutional: Positive for fatigue and fever. Negative for chills. HENT: Positive for ear pain and sore throat. Negative for congestion. Eyes: Negative. Respiratory: Positive for cough. Negative for shortness of breath. Cardiovascular: Negative. Gastrointestinal: Negative. Endocrine: Negative. Genitourinary: Negative. Musculoskeletal: Negative. Skin: Negative. Neurological: Positive for headaches. Hematological: Negative. Objective BP 125/89 (BP Site: Right Arm, BP Position: Sitting) Pulse 96 Temp 36.4 ?C (97.5 ?F) Wt 99.6 kg (219 lb 8 oz) LMP 12/18/2020 SpO2 100% BMI 34.38 kg/m? Physical Exam Vitals reviewed. Constitutional: General: She is not in acute distress. Appearance: She is not ill-appearing, toxic-appearing or diaphoretic. HENT: Head: Normocephalic and atraumatic. Right Ear: Tympanic membrane, ear canal and external ear normal. Left Ear: Tympanic membrane, ear canal and external ear normal. Nose: Nose normal. Right Sinus: No maxillary sinus tenderness or frontal sinus tenderness. Left Sinus: No maxillary sinus tenderness or frontal sinus tenderness. Mouth/Throat: Mouth: Mucous membranes are moist. Pharynx: Oropharynx is clear. Posterior oropharyngeal erythema present. No oropharyngeal exudate. Tonsils: Tonsillar exudate present. 1+ on the right. 2+ on the left. Cardiovascular: Rate and Rhythm: Normal rate and regular rhythm. Pulmonary: Effort: Pulmonary effort is normal. Breath sounds: Normal breath sounds. Lymphadenopathy: Head: Right side of head: Tonsillar adenopathy present. No submandibular adenopathy. Left side of head: Tonsillar adenopathy present. No submandibular adenopathy. Cervical: Cervical adenopathy present. Right cervical: Superficial cervical adenopathy present. Left cervical: Superficial cervical adenopathy present. Psychiatric: Behavior: Behavior is cooperative. Assessment and Plan (J02.9) Pharyngitis, unspecified etiology (primary encounter diagnosis) Plan: GROUP A STREPTOCOCCUS BY PCR, COVID WITH FLUA+B, ROUTINE (R05.9) Cough Plan: COVID WITH FLUA+B, ROUTINE (R50.9) Low grade fever Plan: COVID WITH FLUA+B, ROUTINE Education on viral vs bacterial infections. Most viral infections will last 10 days, sometimes 14. It is possible to have back to back viral infections. An antibiotic will not treat a virus. -Strep negative in office. Will do send out strep. -Covid test for rule out, results in 48 hours, isolation in the interim. 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 Normal [facility] COVID w FLU A+B Routon 05-05 Influenza A PCR Negative Normal [facility] Comment on above: Performed By: #### C OVFLU #### [place] [address] Influenza B PCR Negative Normal [facility] Comment on above: Performed By: #### C OVFLU #### [place] [address] SARS-CoV-2 (COVID-19) RNA LUPE+probe Ql (Unsp spec) UPPER RESPIRATORY TRACT SWAB Normal [facility] Comment on above: Performed By: #### C OVFLU #### [place] [address] SARS-CoV-2 (COVID-19) RNA LUPE+probe Ql (Unsp spec) Negative for COVID19 (SARS CoV2) by RT-PCR or equivalent method. Normal Negative for COVID19 (SARS CoV2) by RT-PCR or equivalent method. [facility] Comment on above: Result Comment: This test was developed and its performance characteristics determined by [facility] [place]. This test has been authorized by FDA under an Emergency Use Authorization (EUA). This test has been validated in accordance with the FDA's Guidance Document Policy for Diagnostics Testing in Laboratories Certified to Perform High Complexity Testing under CLIA prior to Emergency use Authorization for Coronavirus Disease 2019 during the Public Health Emergency issued on July 18, 2019. Test performed by [facility], [facility] [place], [address] [place], [place] [address]. Performed By: #### C OVFLU #### [place] [address] [place] [address] Group A Strep by PCRon 05-05 GAS Specimen Source Throat Swab Normal [facility] Comment on above: Performed By: #### G ASPCR #### [place] [address] Group A Strep PCR Negative Normal [facility] Comment on above: Result Comment: This test was developed and its performance characteristics determined by [facility] [place] ([facility]3]). It has not been cleared or approved by the FDA. [facility]] is regulated under CLIA as qualified to perform high complexity testing. This test is used for clinical purposes. It should not be regarded as investigational or for research. Performed By: #### G ASPCR #### [place] [address] [place] [id number] Vital Signs Date Time Vital Sign Value Performing Clinician Faci lity 01-13-2025 09:36-0400 Body height 170.[address] Madhu Valles MD Work Phone: [facility] 01-13-2025 09:36-0400 Body mass index (BMI) [Ratio] 33.1 kg/m2 Dr. Madhu Valles MD Work Phone: [facility] 01-13-2025 09:36-0400 Body weight 95.[address] Madhu Valles MD Work Phone: [facility] 01-13-2025 09:36-0400 Diastolic blood pressure 86 mm[Hg] Dr. Madhu Valles MD Work Phone: [facility] 01-13-2025 09:36-0400 Systolic blood pressure 123 mm[Hg] Dr. Madhu Valles MD Work Phone: [facility] Encounters Encounter Date Encounter Type Care Provider Facility Start: 02-02-2025 ambulatory Jolynnsaarh Amador Facility :[facility] Start: 01-13-2025 Encounter for gynecological examination (general) (routine) without abnormal findings Jolynn Amador [facility] Start: 01-13-2025 End: 01-13-[address] Madhu Valles MD Work Phone: -[facility] Start: 01-13-2025 End: 01-13-2025 Patient encounter procedure Jolynn Tsangchapis [employer]VANC[employer] DEVELOPER-C -[facility] Start: 01-13-2025 End: 01-13-2025 Patient encounter procedure Jolynn Tsangchapis ADVANCED DEVELOPER-C -[facility] Work Phone: Start: 01-13-2025 End: 01-13-2025 Patient encounter status Jolynnsarah Amador ADVANCED DEVELOPER-C [facility] Start: 01-13-2025 End: 01-13-[address] Madhu Valles MD Work Phone: -[facility] Start: 01-13-2025 End: 01-13-2025 ambulatory Jolynnsarah Tsangchapis Facility:[facility] Start: 06-12-2023 End: 06-12-2023 Emergency department patient visit SINAN DOMINGO Facility:[facility] Start: 12-17-2022 End: 12-18-2022 ambulatory MADHU VALLES Facility:[facility] Procedures Date Procedure Procedure Detail Performing Clinician Start: 01-13-2025 Liquid based cervica l cytology screening Dr. Madhu Valles MD Work Phone: Comment on above: NEGATIVE FOR INTRAEP ITHELIAL LESION OR MALIGNANCY. Test not performedTh e Thin Prep(R) [employer] was unable to read this specimen.Therefore a manual review was performed. Start: 01-13-[address] hormone measurement [address]. Madhu Valles MD Work Phone: Comment on above: FEMALE:Follicular: 1 .4 - 18.1 mIU/mLMidcycle: 3.4 - 33.4 mIU/mLLuteal: 1.5 - 9.1 mIU/mLPost Menopause: 23.0 - 116.3 mIU/mLMALE: 1.4 - 18.1 mIU/mL Plan of Treatment Date Care Activity Detail Author Start: 02-02-2025 MG Breast - bilateral Screening [facility] Start: 01-13-2025 Estradiol (E2) [Mass /volume] in Serum or Plasma [facility] Start: 01-13-2025 Follicle stimulating hormone measurement [facility] Start: 01-13-2025 [facility] Liquid based cervica l cytology screening [facility] MG Breast - bilateral Screening [facility] Mullerian inhibiting substance [Mass/volume] in Serum or Plasma [facility] pital Payers Date Payer Category Payer Self-pay 2013 Unknown [id number] Unknown [id number] Unknown [id number] Unknown [id number] Social History Date Type Detail Facility Start: [facility]-13[facility] Start: 1975 Sex Assigned At Female [facility] Goals Date Patient Goal Desired Activity /State Evaluation note 01-13-2025 Note Date & Type Note Facility 01-13-2025 Evaluation note Diagnosis Onset Date Resolution Climacteric acute January 13, 2025 8:47am Encounter for routine gynecological examination noneactive January 13 8:47am [facility] Work Phone: Progress note 01-13-2025 Note Date & Type Note Facility 01-13-2025 Progress note [facility] Progress note 05-05-2021 Note Date & Type Note Facility 05-05-2021 Note HNO ID: [id number] Author: Jaz Solano APRN.[employer] Service: ? Author Type: Nurse Practitioner Type: Progress Notes Filed: 05/05/2021 6:22 PM Note Text: This note was created using NoteWriter. Subjective Milagro Bolaños is a 45 year old female. HPI by patient: Milagro Bolaños is a 45 year female presenting to the office with the complaint of viral symptoms. Started approximately 3-4 days prior, 05/02. Associated symptoms include a little cough, sore throat, fever of 99.7F, fatigue, and occasional nausea- attributes to not eating much. Some ear pain that comes and goes. Denies chills, body aches, headache, shortness of breath, vomiting, diarrhea, sinus congestion, and loss of smell/taste that is new for her. Vaccinated for influenza: none. Covid Immunization Dates Overdue - COVID-19 VACCINE (1) Overdue - never done No completion, postpone, frequency change, or communication history exists for this topic. Personal history of Covid: yes, in January- just over 90 days. Flu/RSV contacts: none. Strep contacts: yes, son. Sick contacts: son and . Covid + contacts: none. Travel in the last 14 days: none. Smoking history/second hand smoke: none. OTC ibuprofen. No antibiotic use in the last 30 days. ALLERGIES No Known Allergies Family History Reviewed Including Cardiac Diseases, Psychiatric Diseases, AND Substance Abuse Problem: Colon Cancer Relation: Father Age of Onset: (Not Specified) Problem: Diabetes Relation: Paternal Grandmother Age of Onset: (Not Specified) Problem: Cancer Relation: Maternal Grandfather Age of Onset: (Not Specified) Comment: Bladder Problem: Kidney Disease Relation: Mother Age of Onset: (Not Specified) Social History Tobacco Use Smoking status: Never Smoker Smokeless tobacco: Never Used Alcohol use: No Drug use: No Active Ambulatory Problems Hypothyroid Date Noted: 09/05/2011 Resolved Ambulatory Problems No Resolved Ambulatory Problems Past Medical History:No Additional Past Medical History Review of Systems Constitutional: Positive for fatigue and fever. Negative for chills. HENT: Positive for ear pain and sore throat. Negative for congestion. Eyes: Negative. Respiratory: Positive for cough. Negative for shortness of breath. Cardiovascular: Negative. Gastrointestinal: Negative. Endocrine: Negative. Genitourinary: Negative. Musculoskeletal: Negative. Skin: Negative. Neurological: Positive for headaches. Hematological: Negative. Objective BP 125/89 (BP Site: Right Arm, BP Position: Sitting) Pulse 96 Temp 36.4 ?C (97.5 ?F) Wt 99.6 kg (219 lb 8 oz) LMP 12/18/2020 SpO2 100% BMI 34.38 kg/m? Physical Exam Vitals reviewed. Constitutional: General: She is not in acute distress. Appearance: She is not ill-appearing, toxic-appearing or diaphoretic. HENT: Head: Normocephalic and atraumatic. Right Ear: Tympanic membrane, ear canal and external ear normal. Left Ear: Tympanic membrane, ear canal and external ear normal. Nose: Nose normal. Right Sinus: No maxillary sinus tenderness or frontal sinus tenderness. Left Sinus: No maxillary sinus tenderness or frontal sinus tenderness. Mouth/Throat: Mouth: Mucous membranes are moist. Pharynx: Oropharynx is clear. Posterior oropharyngeal erythema present. No oropharyngeal exudate. Tonsils: Tonsillar exudate present. 1+ on the right. 2+ on the left. Cardiovascular: Rate and Rhythm: Normal rate and regular rhythm. Pulmonary: Effort: Pulmonary effort is normal. Breath sounds: Normal breath sounds. Lymphadenopathy: Head: Right side of head: Tonsillar adenopathy present. No submandibular adenopathy. Left side of head: Tonsillar adenopathy present. No submandibular adenopathy. Cervical: Cervical adenopathy present. Right cervical: Superficial cervical adenopathy present. Left cervical: Superficial cervical adenopathy present. Psychiatric: Behavior: Behavior is cooperative. Assessment and Plan (J02.9) Pharyngitis, unspecified etiology (primary encounter diagnosis) Plan: GROUP A STREPTOCOCCUS BY PCR, COVID WITH FLUA+B, ROUTINE (R05.9) Cough Plan: COVID WITH FLUA+B, ROUTINE (R50.9) Low grade fever Plan: COVID WITH FLUA+B, ROUTINE Education on viral vs bacterial infections. Most viral infections will last 10 days, sometimes 14. It is possible to have back to back viral infections. An antibiotic will not treat a virus. -Strep negative in office. Will do send out strep. -Covid test for rule out, results in 48 hours, isolation in the interim. Stop at the front end loader operator to set up [place] if you are not already active as we are only calling with positive results right now. -Drink lots of fluids and get plenty of rest. Gargle with salt water 3 times/day. -Vaporizers, cool mist humidifiers, warm showers, and warm fluids help open respiratory and sinus passages. Clean humidifiers daily. -OTC tylenol as directed (more content not included)... [facility] Evaluation note Note Date & Type Note Facility Evaluation note Diagnosis Onset Date Resolution Climacteric acute January 13, 2025 8:47am Encounter for routine gynecological examination noneactive January 13 8:47am [facility] Work Phone: Progress note Note Date & Type Note Facility Progress note Note Date/Time January 13, 2025 10:11am [facility] [address], [address] [place] [address] OFFICE VISIT Date of Service: 01/13/25 MR#: [id number] Acct: [id number] Name: MILAGRO BOLAÑOS Rep #: [id number] : 1975 Provider: MADDY Amador Age/Sex: 49/F Location: [facility] Status: Signed Intake Vital Signs 12/06/22 10:43 01/13/25 09:36 Height 5 ft 7 in 5 ft 7 in Weight: 211 lb 8 oz BMI 33.1 BP 123/86 H 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 Is patient in pain?: No Allergies adhesive tape Allergy (Mild, Verified 01/13/25 09:29) Hives Medications ?Medication ?Instructions ?Recorded ?Confirmed ?Type cetirizine 10 mg capsule (Zyrtec) 10 mg PO DAILY PRN 1 05/28/20 01/13/25 History cholecalciferol (vitamin D3) 50 50 mcg PO QDAY 5 01/13/25 History mcg (2,000 unit) capsule levothyroxine 75 mcg capsule 75 mcg PO QDAY 12/22/24 0 01/13/25 History Is last menstrual period known: Yes Last Menstrual Period: 12/18/20 Post menopausal: Yes Patient : No : No Control Method: men[facility] History of UTI History of gout Hypothyroidism History of gastroesophageal reflux (GERD) History of irritable bowel syndrome History of frequent headaches Surgical History History of cholecystectomy Family History Father Colon cancer, Onset Age: 51 Grandfather Cancer Bladder Myocardial infarction, Onset Age: 60 Mother Kidney disease Thyroid disorder Brother Thyroid disorder Grandmother Arthritis Thyroid disorder Social History adopted: No household members: spouse and children number of children: 3 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 Date Name GA/Weeks Outcome Route Bth Weight Infant Gen Labor Lgth Anesthesia Del Locatn Provider FOB 03/08/98 Champ live - full term 7lbs 12oz Male epidural [facility] 11/13/00 Olivier live - full term 8lbs 9oz Male epidural [facility] 07/27/03 Radha live - full term 8lbs 6oz Female [facility] Delivery Date: 07/27/03 Last Updated by: Siomara Davis UTI turned into blood infection HPI Encounter for routine gynecological examination Details: MILAGRO BOLAÑOS is a 49 year old who presents for annual exam. She is here to establish care; she reports no issues or concerns today. Her last menses was December of 2020; no reports of vaginal bleeding. Has had weight change, hotflashes, mood changes, dry skin since what sounds like going through menopause She is sexually active- using condoms. Last PAP: unsure; over 6 years. History of abnormal PAP: none Last mammogram: once prior; normal per patient; greater than 6 yrs. History of abnormal mammogram: none Colon cancer screening: Dr. Posey; Shyla--will schedule through; does not needreferral. Other preventative health care screenings: Ralph Valles. Female Reproductive History Last Menstrual Period: 08/01/21 Questions: metrorrhagia: No, sexually active: Yes (condoms), dyspareunia: No andPCB: No Menopausal Symptoms: Yes hot flashes, Yes night sweats, Yes weight change, Yes mood changes, Yes difficulty concentrating, Yes sleep problems and Yes change inlibido Menopausal Treatment: No HRT, No Vaginal Estrogen, No Osphena, No OTC treatmentsand No prescription non-hormonal treatment ROS Const Constitutional: Reports night sweats; Denies chills, fatigue, fever(s), headache(s) or weight loss Eyes Eyes: Denies change in vision ENT ENT: Denies dizziness Cardio Card: Denies chest pain at rest or palpitations Resp Resp: Denies cough or dyspnea GI GI: Denies abdominal pain, constipation or nausea : Reports hot flashes; Denies difficulty voiding, dysuria, hematuria, nipple discharge, pelvic pain, prolapse symptoms, urinary incontinence, vaginal discharge, vaginal dryness, vaginal odor or vaginal pruritus Skin Skin/Breast: Denies alopecia, rash, breast mass, breast pain, breast skin changes or nipple discharge Neuro Neuro: Denies dizziness Psych Psych: Reports change in libido and difficulty concentrating; Denies anxiety or depression Endo Endo: Denies cold intolerance, excessive sweating or heat intolerance Exam Const General: cooperative, healthy appearing, comfortable, no acute distress, well groomed and well hydrated Nutritional Appearance: well nourished Orientation: alert, awake and oriented x3 HENMT Head: normal to inspection and normocephalic Ears: hearing grossly normal bilaterally and external ears normal Nose: external nose normal Face and sinus: normal facial exam Eyes General: appearance normal, both eyes and all related structures Neck Neck: normal visual inspection, full ROM and no lymphadenopathy Thyroid: thyroid normal Chest Chest palpation & inspection: normal inspection of the chest Breast inspection: normal inspection of the breasts and normal inspection of theaxillae Breast palpation: normal palpation of the breasts, normal palpation of the axillae and no axillary lymphadenopathy Resp Effort & Inspection: normal respiratory effort, able to speak in complete sentences and symmetric chest movement GI Inspection: normal to inspection Palpation: soft and no hepatosplenomegaly General: bladder normal to palpation External Female Exam: normal external appearance and normal appearance of the urethra Urethra: normal appearance of the urethra Speculum Exam - Vagina: normal appearance of the vagina, normal vaginal discharge, no lesions and nontender Speculum Exam - Cervix: normal appearance of the cervix, no lesions and no masses Bimanual Exam- Vagina & Uterus: normal bimanual exam, uterine size normal, bladder normal to palpation, normal palpation and non-tender Bimanual Exam- Adnexa, other: normal adnexae, no masses, normal and non-tender Pelvic Support: normal Skin General: no rashes or lesions noted Neuro General: patient alert, patient awake, patient oriented x3 and moves all extremities Psych Appearance: grossly normal Mental Status: mental status grossly normal Affect: normal affect Speech and Movement: speech and movement normal Attitude: cooperative Coding Level of Care Code Off vis,new,prev 40-64yrs Diagnoses Encounter for routine gynecological examination Z01.419 Climacteric N95.1 Assessment and Plan Assessment and Plan (1) Encounter for routine gynecological examination: Plan: Breast and pelvic exam complete. PAP due: completed today Mammogram due: orders placed to obtain Advised self breast exams monthly. Contraception: condoms; no menses x 3 years. Advised incorporating healthy dietary choices such as increase in lean meats, fruits/vegetables, less processed food/sat fat/trans fats. Increase exercise to 30 minutes per day/5 days a week. This can include both weight bearing exercisesand/or brisk walking. Follow up with PCP for further preventative health screenings. 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 Call office sooner with questions or concerns. (2) Climacteric: Status: Acute Plan: considered post menopausal-no menses x 3 years. She is interested in hormone testing to confirm. Orders placed--call with results. Orders: Orders PAP IG HPV APTIMA 16/18,45 Today Z12.4 - Encounter for screening for malignant neoplasm of cervix SCRN MAMM (CAD)W/CHAZ BILAT Today Z12.31 - Encounter for screening mammogram for malignant neoplasm of breast Follicle Stimulating Hormone Today R53.83 - Other fatigue Estradiol Today R53.83 - Other fatigue Antimullerian Hormone, Serum Today R53.83 - Other fatigue Plan Details Goals & Barriers: Goals Decrease spasm Improve ROM Improve intersegmental motion Decrease pain 01/13/25 1011 <Electronically signed by Jolynn LEAC> Date _ Jolynn LEAC Cosigner Signature: Date (if applicable) CC: ~ [facility] Work Phone: Reason for referral (narrative) Note Date & Type Note Facility Reason for referral (narrative) No reason for referral information available [facility] Work Phone: Summary Purpose Family History No Family History Records Found Relationship Condition Age at Onset Recorded Date/T lgadis father Malignant neoplasm of colon 51 grandfather Malignant neoplasm Unknown Myocardial infarction 60 mother Kidney disorder Unknown Disorder of thyroid Unknown brother Disorder of thyroid Unknown grandmother Arthritis Unknown Advance Directives No Advanced Directives Records FoundNo Advanced Directives Records FoundNo Advanced Directives Records FoundNo Advanced Directives Records Found Chief Complaint and Reason for Visit Chief Complaint 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 Date 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 13, 2025 8: 47am Reason for Visit Admit Date Climacteric January 13, 2025 8: 47am Encounter for routine gynecological exam ination January 13, 2025 8:47am Additional Source Comments INFORMATION SOURCE (unrecogn ized section and content) DATE CREATED AUTHOR 08/15/2021 [facility] DATE CREATED AUTHOR AUTHOR'S ORGANIZ ATION 06/13/2023 [facility] DATE CREATED AUTHOR AUTHOR'S ORGANIZ ATION 10/18/2024 [facility] DATE CREATED AUTHOR AUTHOR'S ORGANIZ ATION 01/30/2025 [facility] Care Teams (unrecognized sec tion and content) Team Status: Active Member Role/Relationship Status Dates Dr. Madhu Valles MD Primary Care Provider Active Team Status: Inactive Member Role/Relationship Status Dates Dr. Madhu Valles MD Primary Care Provider Active Start: January 13, 2025 End: January 13, 2025 Dr. Madhu Valles MD Referring Provider Active Start: January 13, 2025 End: January 13, 2025 MADDY Green Attending Provider Active Start: January 13, 2025 End: January 13, 2025 Team Status: Active Member Role/Relationship Status Dates Dr. Madhu Valles MD Primary Care Provider Active Start: January 13, 2025 MADDY Green Attending Provider Active Start: January 13, 2025 MADDY Green Referring Provider Active Start: January 13, 2025 Team Status: Inactive Member Role/Relationship Status Dates Dr. Madhu Valles MD Primary Care Provider Active Start: January 13, 2025 End: January 13, 2025 MADDY Green Attending Provider Active Start: January 13, 2025 End: January 13, 2025 MADDY Green Referring Provider Active Start: January 13, 2025 End: January 13, 2025 FOR RECORDS PERTAINING TO PATIENTS WHO ARE OR HAVE BEEN ENROLLED IN A CHEMICAL DEPENDENCY/SUBSTANCEABUSE PROGRAM, SOME INFORMATION MAY BE OMITTED. This clinical summary was aggregated from multiple sources. Caution should be exercised in using it in the provision of clinical care. This summary normalizes information from multiple sources, and as a consequence, information in this document may materially change the coding, format and clinical context of patient data. In addition, data may be omitted in some cases. CLINICAL DECISIONS SHOULD BE BASED ON THE PRIMARY CLINICAL RECORDS. [facility] [employer] [facility]. provides no warranty or guarantee of the accuracy or completeness of information in this document.
== END | disposition home or self-care (01) ==
LOC: OPBI 02-03 07:23
PROVIDERS: PCP Family Medicine; Referring Provider Nurse Practitioner Family; Visit Provider Nurse Practitioner Family
DX: Z12.31 Encounter for screening mammogram for malignant neoplasm of breast (principal)
CPT/HCPCS: 77063; 77067